=== PATIENT | female | born 1970 | race Caucasian/White ===

== ENCOUNTER 2023-09-04 18:10 | Emergency (ER) | payer OTHER, SELFPAY ==
[2023-09-04 18:16] VITALS: BP 159/110
[2023-09-04] MEDS: ROXICODONE 5 MG PO (19:38)
[2023-09-04] MEDS: TORADOL 15 MG IM (19:38)
[2023-09-04] MEDS: TYLENOL 650 MG PO (19:39)
[2023-09-04] MEDS: LIDOCAINE 4% PATCH 1 PATCH TOPICAL (19:39)
--- NOTE | 2023-09-04 20:26 | ED.GENMED ---
History of Present Illness
General
Chief Complaint: Musculo-Skeletal Complaint
Source: patient and significant other
Exam Limitations: none
Time Seen by Provider: 09/04/23 18:52
Nursing documentation reviewed up to this point in time: agreed with
Travel History
Have you had any contact with someone who has COVID-19?: No
Do you have any symptoms of coronavirus? Fever > 100 degrees, chills, cough, shortness of breath, sore throat, loss of taste or smell, muscle aches, or headache?: No
History of Present Illness
History of Present Illness:
Patient is a 53-year-old female with past medical history of hypertension, hyperlipidemia, diabetes, elevated BMI, who presents to the emergency department accompanied by her significant other for evaluation of left leg pain. Patient reports that
the pain started 3 weeks ago but has gotten progressively worse. Patient denies any known injury, trauma, overuse. Patient reports that it seems to start in the lateral aspect of her left hip and then radiates about alf down the lateral aspect
of her left thigh. Patient reports that the pain is worse when she tries to walk or stand and is improved with rest. Patient reports that she has tried multiple [id number] medications including ibuprofen and Tylenol without significant
improvement in her pain. Patient reports she also went to the chiropractor who tried to help with multiple modalities including a TENS unit, ultrasound, and cupping but without improvement in her pain. Patient denies any numbness, weakness,
tingling of the extremity. Patient denies any history of similar. Patient denies recent fevers, chills, chest pain, shortness of breath, abdominal pain, nausea, vomiting. Patient denies recent urinary symptoms.
Past History
Past History
ED Past Medical History: HTN, Psychiatric (Depression ) and Other (Anemia )
ED Past Surgical History: Bowel resection (Gastric bypass ), Cholecystectomy, and Other (Abdominal wall abscess with drainage 2008 )
Social History
Tobacco: Non-smoker
Alcohol: Occasional
Drug: None
Personal:
Living: with family
Employment: Employed
Family History
Family History: Hypertension; Negative Early CAD
Review of Systems
Review of Systems
Allergies reviewed?: Yes
All Other Systems: ROS reviewed and negative except as documented in HPI and ROS
Constitutional: Reports no symptoms
EENT: Reports no symptoms
Respiratory: Reports no symptoms
Cardiac: Reports no symptoms
ABD/GI: Reports no symptoms
: Reports no symptoms
Musculoskeletal: Reports other (LLE pain)
Skin: Reports no symptoms
Neurological: Reports no symptoms
Endocrine: Reports no symptoms
Hematologic/Lymphatic: Reports no symptoms
Psychiatric: Reports no symptoms
Phy Exam
General Physical Exam
General Presentation: well appearing and no apparent distress
General Skin: warm and dry
General Habitus: normal
General Mental: alert
General Hydration: appears well hydrated
ENT Exam
ENT Exam: EOMI, pharynx normal, neck supple and normocephalic
Eye Exam
Eye Exam: PERRL, cornea clear and conjunctiva normal
Cardiovascular Exam
Cardiovascular Exam: normal peripheral pulses
Pulmonary Exam
Pulmonary Exam: no respiratory distress
Neurological Exam
Neurological Exam: alert, oriented x3, no motor deficits and speech normal
Musculoskeletal Exam
Musculoskeletal Exam: other (no appreciable swelling, (+) ttp over the lateral aspect of the left hip and thigh, pt is able to extend the leg, but has pain with internal and external rotation of the hip, 2+ DP pulses b/l, sensation intact to light
touch distally)
Skin Exam
Skin Exam: normal color, warm/dry, no rash and no petechia
Psychiatric Exam
Psychiatric Exam: normal mood/affect
Course
Orders/Labs/Results
Orders:
Orders
09/04/23 18:21
Hip, Left 2-3 Views [CR Hip - LT w/wo Pel 2-3 Vw*] Urgent
Comment:
Reason For Exam: pain
Include a pelvis x-ray?: Yes
09/04/23 19:23
Acetaminophen [Tylenol] 650 mg PO NOW STA
Ketorolac [Toradol] 15 mg IM NOW STA
Oxycodone [Roxicodone] 5 mg PO NOW STA
09/04/23 19:35
Lidocaine [Lidocaine 4% Patch] 1 patch TOPICAL ONCE STA
09/04/23 19:37
Lidocaine [Lidocaine 4% Patch] 1 patch .ROUTE .STK-MED ONE
Lidocaine [Lidocaine 4% Patch] 1 patch .ROUTE .STK-MED ONE
Vital Signs
Initial and Last Documented VS:
Initial Vital Signs
Temp Pulse Resp BP Pulse Ox
99.4 F 106 20 159/110 99
09/04/23 18:16 09/04/23 18:16 09/04/23 18:16 09/04/23 18:16 09/04/23 18:16
Last Documented Vital Signs
Temp Pulse Resp BP Pulse Ox
99.4 F 106 20 159/110 99
09/04/23 18:16 09/04/23 18:16 09/04/23 18:16 09/04/23 18:16 09/04/23 18:16
*Critical Care Note
Total Time (30-74mins, 75-104mins- exclusive of procedures): Not Applicable
Update Note
Update Note:
Patient is a 53-year-old female with past medical history as noted who presents to the emergency department for 3 weeks of worsening left lateral lower extremity pain. Patient denies any known inciting injury, trauma, overuse. On arrival, patient
is hypertensive, afebrile. On exam, patient is well-appearing, she is in no acute distress, she is neurovascularly intact. Radiographs of the left hip were performed while the patient was in the waiting room and demonstrates evidence of
osteoarthritis and degenerative changes in her spine without acute abnormality. I suspect the patient's symptoms could be caused by meralgia paresthetica given the location and description of burning pain. Patient denies taking any medication
today for pain, will give ketorolac per her request, Tylenol, lidocaine patch. Will also add on a tab of oxycodone. Patient is safe for outpatient follow-up with orthopedics as soon as possible for definitive diagnosis and treatment. Patient
requesting prescription for oxycodone, will prescribe a few tabs. Patient will continue supportive care measures at home. Patient and her educated on return precautions, they expressed understanding of the plan and agreed.
ED Attending Note
-
Portions of this chart may have been created with voice recognition software.� Occasional wrong word or��sound alike� substitutions may have occurred due to the inherent limitations of voice recognition software.
Discharge Plan
Departure
Patient Disposition: Home (Routine Discharge)
Date of Disposition: 09/04/23
Time of Disposition: 20:18
Patient with high blood pressure during this ER visit?: Yes
Condition: Good
Covid-19: Not Applicable
Discharge Problem:
Acute pain of left lower extremity
Instructions: Meralgia Paresthetica, Musculoskeletal Pain
Prescriptions:
New
oxycodone 5 mg tablet
5 mg PO Q8H PRN (Reason: Pain) 3 Days Qty: 8 0RF
lidocaine 5 % adhesive patch,medicated
1 patch topical DAILY PRN (Reason: pain) 30 Days Qty: 30 0RF
Discontinued
diazepam [Valium] 5 MG tablet
5 mg PO BID PRN (Reason: pain, spasm) Qty: 13 0RF
No Action
Lisinopril-Hctz 10-12.5 mg Tab
1 tab PO DAILY
Referrals:
Hawa French DO [Family Provider] -
Miguelangel Au MD [Active] - Follow up in 2-3 days
Stand Alone Forms: Return to Work
Activity Restrictions/Additional Instructions:
You were seen in the emergency department for evaluation of burning pain over the lateral aspect of your left leg. We believe that you likely have a condition called meralgia paresthetica which is caused by compression of the nerve. You were
given Toradol, Tylenol, lidocaine patch, and oxycodone while you were in the emergency department. It is safe for you to be discharged to home. Please continue to get plenty of rest, you may continue to alternate ice and heat to the affected area.
You may continue to take medication as prescribed. Please follow-up with orthopedics for definitive diagnosis and treatment. Please return to the emergency department for increasing pain, swelling, redness, color change of the foot or toes, or
any other worsening or concerning symptoms.
Interventions
Interventions:
*Risk Screen - Suicide Last Done: 09/04/23 18:17
*General Assessment Last Done: 09/04/23 18:17
*Neglect/Abuse Screening Last Done: 09/04/23 18:17
ED- Fall Risk Assessment Last Done: 09/04/23 18:55
*ED COVID-19 Vaccine History Last Done: 09/04/23 18:55
*Nursing Disposition Last Done: 09/04/23 20:52
ED-Musculoskeletal Assessment Last Done: 09/04/23 18:55
Discharge Date and Time
Discharge Date/Time: 09/04/23 20:53
Print Language: CAMBODIAN
== END 2023-09-04 20:53 | disposition home or self-care (01) ==
LOC: EMR 18:10
PROVIDERS: EMERGENCY PHYSICIAN Emergency Medicine; FAMILY PHYSICIAN Family Medicine
DX: M79.605 Pain in left leg (principal); M25.552 Pain in left hip; R26.2 Difficulty in walking, not elsewhere classified; M47.816 Spondylosis without myelopathy or radiculopathy, lumbar region; I10 Essential (primary) hypertension; E11.9 Type 2 diabetes mellitus without complications; E78.5 Hyperlipidemia, unspecified; D64.9 Anemia, unspecified; F32.A Depression, unspecified; Z98.0 Intestinal bypass and anastomosis status; Z90.49 Acquired absence of other specified parts of digestive tract; Z98.84 Bariatric surgery status
CPT/HCPCS: 99283; 73502